=== PATIENT | male | born 1960 | race Two or more races ===

== ENCOUNTER 2017-02-27 21:16 | Inpatient (IN) | payer BC ==
[~2017-02-27] VITALS: Ht 177.8 cm; Wt 96.9 kg
[2017-02-27 21:26] LABS: EOSINOPHIL (%) 3.9 % (0-5); EOSINOPHIL COUNT 0.4 K/uL (0-0.3); HEMATOCRIT 45.4 % (38.0-50.0); IMMATURE GRANULOCYTE (%) 0.8 % (0.0-0.7); IMMATURE GRANULOCYTE COUNT 0.1 K/uL; LYMPHOCYTE COUNT 3.6 K/uL (1.0-2.8); MCH 30.4 PG (29.0-34.0); MCHC 33.9 G/DL (30.0-36.0); MCV 89.5 FL (86-99); MONOCYTE (%) 10.3 % (3-12); MONOCYTE COUNT 0.9 K/uL (0-0.8); NEUTROPHIL (%) 44.8 % (45-76); PLATELET COUNT 202 K/uL (156-360); RBC DIS.WIDTH-CV 14.2 % (11.8-14.6); RBC DIS.WIDTH-SD 46.6 % (39-53); RED BLOOD COUNT 5.07 M/uL (4.00-5.50)
[2017-02-27 21:40] LABS: AMYLASE 77 IU/L (1-118); CHLORIDE 101 mEq/L (99-109); POTASSIUM 3.7 mEq/L (3.7-5.4); SODIUM 131 mEq/L (136-147)
[2017-02-27 21:42] LABS: GLUCOSE 101 mg/dL (70-99)
[2017-02-27 21:43] LABS: ANION GAP 14 MEQ/L (2-14)
[2017-02-27 21:45] LABS: SERUM ETHYL ALCOHOL 227 mg/dL
[2017-02-27 21:47] LABS: UREA NITROGEN (BUN) 14 mg/dL (9-23)
[2017-02-27 21:49] LABS: LIPASE 41 U/L (1.0-51.0)
[2017-02-27 21:50] LABS: GFR ESTIMATE (CALCULATED) > 59 mL/min/; TROP-I INTERPRETATION NEGATIVE; TROPONIN-I < 0.01 ng/mL (0.0-0.30)
[2017-02-27] MEDS ORDERED: TOPROL XL100 MG PO (22:33)
[2017-02-27] MEDS ORDERED: AMLODIPINE BESY10 MG PO (22:34)
[2017-02-27] MEDS ORDERED: LOSARTAN POTAS100 MG PO (22:34)
[2017-02-27] MEDS ORDERED: METFORMIN HCL500 MG PO (22:35)
[2017-02-27] MEDS ORDERED: OMEPRAZOLE40 M1 PO (22:35)
[2017-02-27] MEDS ORDERED: PAXIL40 MG PO (22:36)
[2017-02-27] MEDS ORDERED: PROZAC40 MG PO (22:36)
[2017-02-28] VITALS (9 sets, daily range): BP systolic 124–143; BP diastolic 73–95
[2017-02-28 06:23] LABS: POINT-OF-CARE METER ID UU14117124
[2017-02-28 06:30] LABS: HEMATOCRIT 41.8 % (38.0-50.0); MCHC 34.7 G/DL (30.0-36.0); MCV 89.5 FL (86-99); MEAN PLAT.VOLUME 10.3 uM^3 (9.0-12.4); PLATELET COUNT 199 K/uL (156-360); RBC DIS.WIDTH-CV 14.5 % (11.8-14.6); RBC DIS.WIDTH-SD 47.4 % (39-53); RED BLOOD COUNT 4.67 M/uL (4.00-5.50); WHITE BLOOD COUNT 8.4 K/uL (4.1-10.2)
[2017-02-28 06:59] LABS: ALKALINE PHOSPHATASE 59 IU/L (3-129); ANION GAP 7 MEQ/L (2-14); CHLORIDE 99 MEQ/L (99-109); GFR ESTIMATE (CALCULATED) > 59 mL/min/; GLUCOSE 138 mg/dL (70-99); POTASSIUM 4.4 MEQ/L (3.7-5.4); SAMPLE HEMOLYSIS CHECK 2; SAMPLE ICTERIC CHECK 0; SAMPLE LIPEMIA CHECK 0; SODIUM 129 MEQ/L (136-147); TOTAL BILIRUBIN 0.6 MG/DL (0.0-1.0); UREA NITROGEN (BUN) 11 mg/dL (9-23)
[2017-03-01 00:14] VITALS: BP 134/79
[2017-03-01 03:54] VITALS: BP 162/94
[2017-03-01 06:54] LABS: POINT-OF-CARE METER ID UU14208753
[2017-03-01] MEDS ORDERED: ENDOCET 5-3251 EACH PO (07:52)
[2017-03-01 08:25] VITALS: BP 154/98
[2017-03-02] MEDS ORDERED: NIFEREX-150,FE150 MG PO (15:38)
[2017-03-02] MEDS ORDERED: NICOTINE PATCH1 EAC2 TD (15:38)
== END 2017-03-01 10:00 | disposition home or self-care (01) | DRG 965 ==
LOC: TRA 21:16 → EDOF 23:00 → ENRESERV 23:18 → EDOF 02-28 00:41 → 3EAST 02-28 00:45
PROVIDERS: Emergency Medicine; Surgery
DX: S22.32XA Fracture of one rib, left side, initial encounter for closed fracture (principal); S27.0XXA Traumatic pneumothorax, initial encounter; G89.11 Acute pain due to trauma; S06.9X9A Unspecified intracranial injury with loss of consciousness of unspecified duration, initial encounter; I10 Essential (primary) hypertension; E11.9 Type 2 diabetes mellitus without complications; F10.120 Alcohol abuse with intoxication, uncomplicated; Y90.7 Blood alcohol level of 200-239 mg/100 ml; F17.210 Nicotine dependence, cigarettes, uncomplicated; V29.9XXA Motorcycle rider (driver) (passenger) injured in unspecified traffic accident, initial encounter; S13.4XXA Sprain of ligaments of cervical spine, initial encounter; S00.01XA Abrasion of scalp, initial encounter; S80.211A Abrasion, right knee, initial encounter; S50.811A Abrasion of right forearm, initial encounter
CPT/HCPCS: 70450; 70486; 71010; 71020; 71100; 71260; 72125; 72129; 72132; 72141; 73030; 74177; 80048; 80053; 81003; 82150; 82948; 83690; 84484; 85025; 85027; 86850; 86900; 86901; 93005; 99281; 99285; G0378; G0480; J1650; J1815; J3480

== ENCOUNTER 2017-03-02 00:06 | Day surgery (SDC) | payer BC ==
[~2017-03-02] VITALS: Ht 177.8 cm; Wt 95.7 kg
[~2017-03-02 00:06] MED LIST: AMLODIPINE BESY10 MG PO; ENDOCET 5-3251 EACH PO; LOSARTAN POTAS100 MG PO; METFORMIN HCL500 MG PO; OMEPRAZOLE40 M1 PO; PAXIL40 MG PO; PROZAC40 MG PO; TOPROL XL100 MG PO
[2017-03-02 00:31] LABS: EOSINOPHIL (%) 0.1 % (0-5); HEMATOCRIT 31.6 % (38.0-50.0); IMMATURE GRANULOCYTE (%) 1.6 % (0.0-0.7); IMMATURE GRANULOCYTE COUNT 0.2 K/uL; LYMPHOCYTE COUNT 1.3 K/uL (1.0-2.8); MCH 30.4 PG (29.0-34.0); MCHC 33.9 G/DL (30.0-36.0); MCV 89.8 FL (86-99); MEAN PLAT.VOLUME 10.5 uM^3 (9.0-12.4); MONOCYTE (%) 7.4 % (3-12); MONOCYTE COUNT 0.8 K/uL (0-0.8); NEUTROPHIL (%) 77.8 % (45-76); PLATELET COUNT 170 K/uL (156-360); RBC DIS.WIDTH-CV 13.8 % (11.8-14.6); RBC DIS.WIDTH-SD 45.2 % (39-53); RED BLOOD COUNT 3.52 M/uL (4.00-5.50); WHITE BLOOD COUNT 10.3 K/uL (4.1-10.2)
[2017-03-02 00:37] LABS: CHLORIDE 97 mEq/L (99-109); POTASSIUM 3.9 mEq/L (3.7-5.4); SODIUM 130 mEq/L (136-147)
[2017-03-02 00:39] LABS: GLUCOSE 152 mg/dL (70-99)
[2017-03-02 00:40] LABS: ANION GAP 12 MEQ/L (2-14)
[2017-03-02 00:41] LABS: AMYLASE 33 IU/L (1-118)
[2017-03-02 00:42] LABS: SERUM ETHYL ALCOHOL < 10 mg/dL
[2017-03-02 00:43] LABS: GFR ESTIMATE (CALCULATED) > 59 mL/min/
[2017-03-02 00:44] LABS: UREA NITROGEN (BUN) 15 mg/dL (9-23)
[2017-03-02 00:46] LABS: LIPASE 13 U/L (1.0-51.0)
[2017-03-02 01:12] LABS: INTER. NORMALIZED RATIO 1.1; PROTHROMBIN TIME 11.9 SEC (10.2-12.9)
[2017-03-02 01:15] LABS: PTT 27.9 SEC (25-37)
[2017-03-02 01:27] LABS: TROP-I INTERPRETATION NEGATIVE; TROPONIN-I < 0.01 ng/mL (0.0-0.30)
[2017-03-02 02:04] LABS: ADD MIUA? NO; BILIRUBIN NEGATIVE; BLOOD NEGATIVE; COLOR YELLOW ((YELLOW)); GLUCOSE (STRIP) NEGATIVE; KETONES NEGATIVE; LEUKOCYTES NEGATIVE; NITRITE NEGATIVE; PROTEIN (STRIP) NEGATIVE; SPECIFIC GRAVITY 1.034 (1.000-1.030); UCUL ADDED? NO
[2017-03-02 02:16] LABS: COCAINE NEGATIVE (150 ng/mL); METHAMPHETAMINE NEGATIVE (500 ng/mL); PHENCYCLIDINE NEGATIVE (25 ng/mL); THC CANNABINOIDS NEGATIVE (50 ng/mL)
[2017-03-02 02:17] LABS: AMPHETAMINE NEGATIVE (500 ng/mL); BENZODIAZEPINES NEGATIVE (150 ng/mL); OPIATES (MORPHINE) PRESUMPTIVE POSITIVE (100 ng/mL)
[2017-03-02 02:18] LABS: ADD MEDTOX COMMENT Y; BARBITURATES NEGATIVE (200 ng/mL); INTERNAL CONTROLS VALID? YES; METHADONE NEGATIVE (200 ng/mL); OXYCODONE PRESUMPTIVE POSITIVE (100 ng/mL); PROPOXYPHENE NEGATIVE (300 ng/mL); TRICYCLIC ANTIDEPRESSANTS NEGATIVE (300 ng/mL)
[2017-03-02 02:58] LABS: POINT-OF-CARE METER ID UU13113675
[2017-03-02 03:11] VITALS: BP 106/61
[2017-03-02 07:00] LABS: MCH 31.1 PG (29.0-34.0); MCHC 34.5 G/DL (30.0-36.0); MCV 90.1 FL (86-99); MEAN PLAT.VOLUME 10.8 uM^3 (9.0-12.4); PLATELET COUNT 161 K/uL (156-360); RBC DIS.WIDTH-CV 14.1 % (11.8-14.6); RBC DIS.WIDTH-SD 46.1 % (39-53); RED BLOOD COUNT 3.22 M/uL (4.00-5.50); WHITE BLOOD COUNT 8.2 K/uL (4.1-10.2)
[2017-03-02 07:25] LABS: ALKALINE PHOSPHATASE 45 IU/L (3-129); ANION GAP 6 MEQ/L (2-14); CHLORIDE 100 MEQ/L (99-109); GLUCOSE 135 mg/dL (70-99); POTASSIUM 4.2 MEQ/L (3.7-5.4); SAMPLE HEMOLYSIS CHECK 0; SAMPLE ICTERIC CHECK 0; SAMPLE LIPEMIA CHECK 0; SODIUM 131 MEQ/L (136-147); UREA NITROGEN (BUN) 14 mg/dL (9-23)
[2017-03-02 07:26] LABS: GFR ESTIMATE (CALCULATED) > 59 mL/min/; TOTAL BILIRUBIN 0.9 MG/DL (0.0-1.0)
[2017-03-02 08:01] VITALS: BP 111/56
[2017-03-02 11:10] VITALS: BP 116/57
[2017-03-02] MEDS ORDERED: NIFEREX-150,FE150 MG PO (15:38)
[2017-03-02] MEDS ORDERED: NICOTINE PATCH1 EAC2 TD (15:38)
[2017-03-02 16:33] VITALS: BP 128/72
[2017-03-02 20:04] VITALS: BP 119/67
[2017-03-02 23:42] VITALS: BP 122/64
[2017-03-03 08:03] VITALS: BP 124/75
== END 2017-03-03 12:40 | disposition home or self-care (01) ==
LOC: TRA 00:06 → ENRESERV 01:11 → SDC 01:30 → TRA 01:30 → ENRESERV 01:39 → 2SOUTH 02:10 → 3EAST 02:10
PROVIDERS: Emergency Medicine; Surgery
DX: S11.81XA Laceration without foreign body of other specified part of neck, initial encounter (principal); S15.211A Minor laceration of right external jugular vein, initial encounter; X78.8XXA Intentional self-harm by other sharp object, initial encounter; D62 Acute posthemorrhagic anemia; E11.9 Type 2 diabetes mellitus without complications; I10 Essential (primary) hypertension; F32.9 Major depressive disorder, single episode, unspecified; F10.10 Alcohol abuse, uncomplicated; Z79.84 Long term (current) use of oral hypoglycemic drugs; F17.210 Nicotine dependence, cigarettes, uncomplicated
CPT/HCPCS: 70498; 71010; 80048; 80053; 81003; 82150; 82948; 83690; 84484; 84999; 85025; 85027; 85610; 85730; 86850; 86900; 86901; 86920; 93005; 99281; 99285; G0378; G0480; J0690; J1100; J1170; J3010; J3480; J7030